=== PATIENT | female | born 1980 | race Hispanic/Latino ===

== ENCOUNTER 2017-03-04 00:18 | Emergency (ER) | payer MEDICAID ==
--- NOTE | 2017-03-04 02:43 | XRay Report ---
FINAL REPORT EXAM: XR ANKLE 3+V LT HISTORY: lt ankle pain post fall COMPARISON: None available. FINDINGS: Three views of left ankle obtained. Soft tissue swelling along the lateral malleolus. There is a small bony fragment at the inferior margin medial malleolus measuring 3-4 millimeters concerning for avulsive injury, likely chronic. Well corticated bony fragment adjacent to the navicular bone and well corticated bony fragments at the base of the 5th metatarsal bone compatible sequelae of prior avulsive injury. Ankle mortise is preserved. No definite acute fracture. IMPRESSION: Soft tissue swelling. No definite acute fracture. Chronic appearing avulsive injuries involving the ankle.
[2017-03-04] MEDS ORDERED: NORCO 5/325 PO ONE (05:20)
--- NOTE | 2017-03-04 05:36 | Emergency Department Report ---
ED Lower Extremity HPI - General Chief Complaint: Extremity Injury, Lower Stated Complaint: FOOT/ANKLE PAIN Time Seen by Provider: 03/04/17 05:20 Source: patient Mode of arrival: Wheelchair Limitations: Physical Limitation - History of Present Illness Initial Comments: 36 yo female with no PMHX presenting to ED complaining of left ankle pain, pt states she was running at her job when she took a mistep and twisted her left ankle. She states she heard a "pop" shortly after she admits she had a difficulty time ambulating on the left lower extremity. Pt denies trauma elsewhere. Pt has no other complaints. MD Complaint: ankle injury (left ) -: Sudden Injury: Ankle: Left Type of Injury: inversion Place: work Severity: moderate Severity scale (0 -10): 10 Improves With: nothing Worsens With: weight bearing, movement Context: running Associated Symptoms: snap/pop sensation, swelling, unable to bear weight, ambulatory. denies: numbness, tingling, able to partially bear weight - Related Data Previous Rx's Medication Instructions Recorded Last Taken Type HYDROcodone/APAP 5-325 [[place] 1 each PO Q6HR PRN #10 tablet 03/04/17 Unknown Rx 5/325] Ibuprofen [Motrin 800 MG tab] 800 mg PO Q8HR PRN #30 tablet 03/04/17 Unknown Rx Allergies Allergy/AdvReac Type Severity Reaction Status Date / Time No Known Allergies Allergy Unverified 03/04/17 00:53 ED Review of Systems ROS: Stated complaint: FOOT/ANKLE PAIN Other details as noted in HPI Constitutional: denies: chills, fever Eyes: denies: eye pain, eye discharge, vision change ENT: denies: ear pain, throat pain Respiratory: denies: cough, shortness of breath, wheezing Cardiovascular: denies: chest pain, palpitations Endocrine: no symptoms reported Gastrointestinal: denies: abdominal pain, nausea, diarrhea Genitourinary: denies: urgency, dysuria, discharge Musculoskeletal: joint swelling (left ankle ), arthralgia, other. denies: back pain, myalgia Skin: denies: rash, lesions Neurological: denies: headache, weakness, paresthesias Psychiatric: denies: anxiety, depression Hematological/Lymphatic: denies: easy bleeding, easy bruising ED Past Medical Hx - Past Medical History Previous Medical History?: No - Surgical History Past Surgical History?: Yes Hx Cholecystectomy: Yes Additional Surgical History: right wrist tl throat surgery - Social History Smoking Status: Current Every Day Smoker Substance Use Type: None - Medications Home Medications: Home Medications Medication Instructions Recorded Confirmed Last Taken Type HYDROcodone/APAP 5-325 [[place] 1 each PO Q6HR PRN #10 tablet 03/04/17 Unknown Rx 5/325] Ibuprofen [Motrin 800 MG tab] 800 mg PO Q8HR PRN #30 tablet 03/04/17 Unknown Rx ED Physical Exam - General Limitations: Physical Limitation General appearance: alert, in no apparent distress - Head Head exam: Present: atraumatic, normocephalic - Eye Eye exam: Present: normal appearance, PERRL, EOMI - ENT ENT exam: Present: normal exam, mucous membranes moist - Neck Neck exam: Present: normal inspection, full ROM. Absent: tenderness - Respiratory Respiratory exam: Present: normal lung sounds bilaterally. Absent: respiratory distress, wheezes - Cardiovascular Cardiovascular Exam: Present: regular rate, normal rhythm. Absent: systolic murmur, diastolic murmur, rubs, gallop - GI/Abdominal GI/Abdominal exam: Present: soft, normal bowel sounds. Absent: tenderness, guarding - Extremities Exam Extremities exam: Present: normal capillary refill, joint swelling (left ankle has mild swellinh, limited ROM secondary to pain, 2+ DP pulses BL, cap refill is brisk) - Back Exam Back exam: Present: normal inspection, full ROM. Absent: tenderness, muscle spasm, paraspinal tenderness - Neurological Exam Neurological exam: Present: alert, oriented X3, CN II-XII intact - Psychiatric Psychiatric exam: Present: normal affect, normal mood - Skin Skin exam: Present: warm, dry, intact, normal color. Absent: rash ED Course Vital Signs 03/04/17 03/04/17 00:53 05:28 Temperature 98.7 F Pulse Rate 109 H Respiratory 20 18 Rate Blood Pressure 138/93 O2 Sat by Pulse 99 Oximetry - Reevaluation(s) Reevaluation #2: 03/04/17 05:57 pt states pain has improved - Orthopedic Splinting/Casting Injury #1 Side: left Lower Extremity Injury Location: ankle Lower Extremity Immobilizer: [employer] Other Orthopedic Equipment: crutches ED Lower Extremity MDM - Radiology Data Impression: Soft tissue swelling. No definitive acute fracture. Chronic appearing avulsion injuries involving the ankle. Dr PARAG WOODARD - Medical Decision Making 28-year-old female presenting to the ED with ankle sprain. X-rays were negative for fracture OR dislocation. Patient states pain is improved and she is ready to discharge the emergency department and follow-up with orthopedic surgery. Patient has no other complaints. Patient verbalized understanding of return precautions. - Differential Diagnosis fracture, dislocation, laceration Critical Care Time: No Critical care attestation.: If time is entered above; I have spent that time in minutes in the direct care of this critically ill patient, excluding procedure time. ED Disposition Clinical Impression: Left ankle sprain Disposition: DC- TO HOME OR SELFCARE Is pt being admited?: No Does the pt Need Aspirin: No Condition: Good Instructions: Ankle Sprain (ED) Prescriptions: HYDROcodone/APAP 5-325 [[place] 5/325] 1 each PO Q6HR PRN #10 tablet PRN Reason: Pain Ibuprofen [Motrin 800 MG tab] 800 mg PO Q8HR PRN #30 tablet PRN Reason: Pain , Severe (7-10) Referrals: ALYSSA ARGUELLO MD [Primary Care Provider] - 3-5 Days RIN MARTINES MD [Staff Physician] - 3-5 Days Forms: Work/School Release Form(ED)
[2017-03-04 06:42] VITALS: BP 128/84
== END 2017-03-04 06:43 | disposition home or self-care (01) ==
LOC: ED 00:18
DX: S93.402A Sprain of unspecified ligament of left ankle, initial encounter (principal); F17.200 Nicotine dependence, unspecified, uncomplicated; X50.1XXA Overexertion from prolonged static or awkward postures, initial encounter; Y93.02 Activity, running; Y92.89 Other specified places as the place of occurrence of the external cause; Y99.8 Other external cause status
CPT/HCPCS: 99283